=== PATIENT | male | born 1955 | race Caucasian/White ===

== ENCOUNTER → 2019-07-28 09:36 | Outpatient (BNVA) | payer OTHER, SELFPAY | PROVIDERS: Family Provider Family Medicine; PCP Family Medicine; Visit Provider Anesthesiology Pain Medicine | DX: M50.020 Cervical disc disorder with myelopathy, mid-cervical region, unspecified level (principal); M54.9 Dorsalgia, unspecified; Z79.891 Long term (current) use of opiate analgesic | CPT/HCPCS: 99204 ==

== ENCOUNTER → 2019-08-11 13:50 | Outpatient (BNVA) | payer OTHER, SELFPAY | PROVIDERS: Family Provider Family Medicine; PCP Family Medicine; Visit Provider Anesthesiology Pain Medicine | DX: M50.020 Cervical disc disorder with myelopathy, mid-cervical region, unspecified level (principal) | CPT/HCPCS: 62321; 81001; J1100; J2001 ==

== ENCOUNTER → 2020-08-09 09:04 | Outpatient (BNVA) | payer OTHER, SELFPAY | PROVIDERS: Family Provider Family Medicine; PCP Family Medicine; Visit Provider Urology | DX: Z12.5 Encounter for screening for malignant neoplasm of prostate (principal) | CPT/HCPCS: 81003; G0103 ==

== ENCOUNTER 2023-07-14 13:58 | Emergency (ER) | payer OTHER, SELFPAY ==
[2023-07-14 14:22] VITALS: BP 129/69; PULSE 64; RESP 16; TEMP 36.6; O2SAT 95
--- NOTE | 2023-07-14 16:21 | W.ED.SKABFB ---
HPI - Skin/Abscess/Foreign Bdy General: Chief complaint: Skin/Abscess/Foreign Body Stated complaint: bite on on right hand and right foot Time Seen by Provider: 07/14/23 16:21 History of Present Illness: 67-year-old male presents to the emergency department with complaints of a possible spider bite to the medial aspect of his right hand and also to the inner aspect of his right fifth toe. He states that this occurred approximately 2 days ago while he was camping around [facility]. He does have a dime size wound that consists of a ruptured blister and a hyperemic circular lesion to both his right hand and his right fifth toe. He denies fevers chills or night sweats. He denies numbness or tingling. He states he has been applying triple antibiotic ointment but became concerned as he feels the area has become more reddened. Review of Systems General: Reports: 10 or more systems reviewed and unremarkable except in HPI and below Skin/Breast: Reports: erythema and new lesions [facility] ED PFSH: Medical History (Updated 07/14/23 @ 16:48 by You Rebollar MD) BPH NOS w ur obs/LUTS Cervical disc disorder with myelopathy of mid-cervical region Sleep apnea Nocturia Hyperlipidemia Family History Father , Age 78 Stroke Mother Leukemia Aneurysm Age 79 Social History Smoking and tobacco/nicotine status: former use of tobacco/nicotine Alcohol intake: current Alcohol intake frequency: holidays/special occasions only Substance/Drug Use: never Lives independently: Yes Household members: spouse Marital status: Current occupational status: retired Physical Exam Narrative: EXAM NARRATIVE: General: Alert, no acute distress. Head: Normocephalic, atraumatic. Neck: Supple, trachea midline. No JVD or lymphadenopathy Eye: Extraocular movements are intact. PERRLA Ears, nose, mouth and throat: mucosa moist. Cardiovascular: Regular, Normal peripheral perfusion. Respiratory: Lungs are clear to auscultation, respirations are non-labored, breath sounds are equal, Symmetrical chest wall expansion. Gastrointestinal: Soft, Nontender, Non distended, Normal bowel sounds. Musculoskeletal: Normal ROM, no deformity. Neurological: Alert and oriented, No focal neurological deficit observed. Psychiatric: Cooperative, appropriate mood & affect. Skin: Warm, dry, dime sized circular lesion to the medial aspect of the right hand that is approximately dime sized with a ruptured blister and circumferential area of erythema that is deep maroon in color, patient's right fifth toe on the medial aspect does appear to have a similar blister and is similar in color to the injury on the patient's right hand. Capillary refill is less than 3 seconds there is no obvious signs of streaking to demonstrate phlebitis. Course Vital Signs: Vital signs: Vital Signs Temperature 97.9 F 07/14/23 14:22 Pulse Rate 59 L 07/14/23 16:25 Respiratory Rate 16 07/14/23 14:22 Blood Pressure 163/108 07/14/23 16:25 Pulse Oximetry 99 07/14/23 16:25 Oxygen Delivery Me thod Room Air 07/14/23 16:25 MDM - Skin/Abscess/Foreign Bdy Medicial Decision Making Physical exam completed and documented I will provide wound care for the patient while here in the emergency department and provide a dressing. I have provided discharge instructions as well as anticipatory guidance and will provide written prescription for antibiotic ointment and by mouth antibiotics for the patient. I requested that he follow-up with his primary care provider in 1 week to have the wound reassessed. Medical Records I reviewed the patient's medical records. No radiology studies performed this visit Discharge Plan Discharge Patient Disposition: Home Clinical Impression: Envenomation Cellulitis Qualifiers: Site of cellulitis: extremity Site of cellulitis of extremity: upper extremity Laterality: right Qualified Code(s): L03.113 - Cellulitis of right upper limb Condition: Stable Prescriptions: New mupirocin 2 % ointment 1 applic topical BID Qty: 15 0RF amoxicillin-pot clavulanate 875-125 mg tablet 1 tab PO BID 10 Days Qty: 20 0RF No Action guaifenesin [Mucinex] 600 mg tablet extended release 12hr 600 mg PO Q12H PRN Discharge Orders: Discharge ED (Routine); Ordered 07/14/23 Ordered By: You Rebollar Referrals: Arabella Ledesma MD [Primary Care Provider] - Discharge Diet: Usual diet Discharge Activity: Resume usual activity Patient Instructions: Opioid Safety, Pain Management Activity Restrictions/Additional Instructions: Activity Restrictions/Additional Instructions: Thank you for choosing [facility] for your healthcare needs today. Please realize that you were seen in the Emergency Department and that we are providing you with an emergency medical screening exam and this may not be a complete and all inclusive of all the testing and or medical work-up that you may need to determine your ailment or severity of your illness. It is very important that you follow-up as instructed with your Primary care provider or Specialist for additional evaluation and to discuss your medical treatment plan. Y Coding Level of Care Code ED [employer] for Aria Delgado
[2023-07-14 16:25] VITALS: BP 163/108; PULSE 59; O2SAT 99
[2023-07-14 17:02] VITALS: PULSE 56; O2SAT 99
== END 2023-07-14 17:04 | disposition home or self-care (01) ==
PROVIDERS: Emergency Provider Internal Medicine; PCP Family Medicine
DX: L03.113 Cellulitis of right upper limb (principal); T63.301A Toxic effect of unspecified spider venom, accidental (unintentional), initial encounter; E78.5 Hyperlipidemia, unspecified; Z87.891 Personal history of nicotine dependence
CPT/HCPCS: 99283